=== PATIENT | male | born 1975 | race Caucasian/White ===

== ENCOUNTER 2017-10-11 01:40 | Emergency (ER) | payer SELFPAY ==
--- NOTE | 2017-10-11 01:45 | NUR ---
PATIENT CALLED TO BE TRIAGE NO RESPONSE.PATIENT LEFT WITHOUT BEING SEEN BY DR. GOULD. NO FURTHER CARE PROVIDED FOR PATIENT.
== END 2017-10-11 01:45 | disposition left against medical advice (07) ==
LOC: MED 01:40
DX: R42 Dizziness and giddiness (principal); Z53.21 Procedure and treatment not carried out due to patient leaving prior to being seen by health care provider

== ENCOUNTER 2019-03-14 12:31 | Emergency (ER) | payer OTHER ==
[~2019-03-14] VITALS: Ht 185.4 cm; Wt 104.3 kg
[2019-03-14 12:42] VITALS: BP 133/93
[2019-03-14] MEDS ORDERED: DIAZEPAM 5 MG TAB PO ONE (12:45)
[2019-03-14] MEDS ORDERED: KETOROLAC 30 MG/ML VIAL IM ONE (12:45)
--- NOTE | 2019-03-14 12:48 | NUR ---
PT PRESENTS TO ED WITH C/O BACK PAIN SINCE MONDAY. DENIES ANY INJURY/TRAUMA. DENIES ANY PAIN AT THIS TIME. DENIES ANY UTI SYMPTOMS.
--- NOTE | 2019-03-14 12:50 | NUR ---
PT TAKEN TO XRAY VIA WHEELCHAIR BY TECH.
[2019-03-14 14:06] VITALS: BP 133/93
--- NOTE | 2019-03-14 14:07 | NUR ---
Patient discharged with v/s stable. Written and verbal after care instructions given and explained. Patient alert, oriented and verbalized understanding of instructions. Ambulatory with steady gait. All questions addressed prior to discharge. ID band removed. Patient advised to follow up with PMD. Rx of VALIUM AND NAPROSYN given. Patient educated on indication of medication including possible reaction and side effects. Opportunity to ask questions provided and answered.
== END 2019-03-14 14:07 | disposition home or self-care (01) ==
LOC: MED 12:31
DX: S29.012A Strain of muscle and tendon of back wall of thorax, initial encounter (principal); X50.0XXA Overexertion from strenuous movement or load, initial encounter; Y93.89 Activity, other specified; Y92.69 Other specified industrial and construction area as the place of occurrence of the external cause; Y99.0 Civilian activity done for income or pay
CPT/HCPCS: 71046; 81002; 96372; 99283; J1885

== ENCOUNTER 2019-03-25 15:44 | Emergency (ER) | payer OTHER ==
[~2019-03-25] VITALS: Ht 185.4 cm; Wt 104.3 kg
[2019-03-25 15:55] VITALS: BP 149/87
--- NOTE | 2019-03-25 16:04 | NUR ---
Patient ambulated to chair D. RN evaluating patient.
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
[2019-03-25 16:45] VITALS: BP 139/83
== END 2019-03-25 16:48 | disposition home or self-care (01) ==
LOC: MED 15:44
DX: S29.012A Strain of muscle and tendon of back wall of thorax, initial encounter (principal); R03.0 Elevated blood-pressure reading, without diagnosis of hypertension; X50.0XXA Overexertion from strenuous movement or load, initial encounter; Y93.89 Activity, other specified; Y92.69 Other specified industrial and construction area as the place of occurrence of the external cause; Y99.0 Civilian activity done for income or pay
CPT/HCPCS: 99283